=== PATIENT | male | born 1940 | race Caucasian/White ===

== ENCOUNTER 2018-08-25 16:25 | Inpatient (IN) ==
--- NOTE | 2018-08-25 16:52 | ED ---
HPI General Chief complaint: Weakness Stated complaint: Weakness Time Seen by Provider: 08/25/18 16:39 Source: patient and family Mode of arrival: wheelchair Limitations: no limitations History of Present Illness HPI narrative: 77-year-old male with history of metastatic stage IV lung cancer diagnosed at the end of last year, here with his significant other and family members for evaluation of generalized weakness, syncopal episode that occurred earlier this morning, approximately 30 pound weight loss over the last couple of weeks, decrease oral intake over the last couple of weeks. The patient was actually being visited by [facility] today for an evaluation to see if the patient would like to be started on hospice. During this evaluation it was recommended to the patient and his family that he seek treatment at the emergency department. He has not had a fever. He has had intermittent cough that occasionally is blood-tinged. He denies chest pain. He states that he had a syncopal episode this morning in his home while walking, and it took him about an hour to get back to his feet. This was an unwitnessed event. The patient had prostate cancer in 2013 that was treated. The patient has not wanted any treatment for his lung cancer. He was a long time smoker up until 3 weeks ago. Related Data Home Medications Medication Instructions Recorded Confirmed alprazolam 1 mg PO HS 08/25/18 08/25/18 aspirin 325 mg PO DAILY PRN 08/25/18 08/25/18 Allergies Allergy/AdvReac Type Severity Reaction Status Date / Time Sulfa (Sulfonamide Allergy Dizziness Verified 08/25/18 16:32 Antibiotics) aspirin AdvReac Gastrointestinal Verified 08/25/18 16:32 Upset Review of Systems ROS: all other systems reviewed are negative [facility] Medical History Medical History History of prostate cancer (Acute) Lung cancer (Acute) Social History Social History Substance History: No History of Abuse Smoking Status: Former smoker How Often Do You Have a Drink Containing Alcohol: Never Recent Travel in [facility] within the Last 8 Weeks: No Recent Out of Country Travel within the Last 8 Weeks: No Exam Narrative Exam Narrative: GENERAL: Well-developed, cachectic appearing, awake, drowsy SKIN: Focused skin assessment warm/dry. No lacerations, abrasions, or ecchymosis. HEAD: Atraumatic. Normocephalic. EYES: Pupils equal and round. No scleral icterus. No injection or drainage. ENT: No nasal bleeding or discharge. Mucous membranes pink and moist. NECK: Trachea midline. No JVD. CARDIOVASCULAR: Regular rate and rhythm. Distal pulses brisk and equal bilaterally. RESPIRATORY: No accessory muscle use. Coarse breath sounds bilaterally with diminished breath sounds on the left. Breath sounds equal bilaterally. GASTROINTESTINAL: Abdomen soft, non-tender, nondistended. MUSCULOSKELETAL: No obvious deformities. No clubbing. No cyanosis. No edema. NEUROLOGICAL: Awake and drowsy. No obvious cranial nerve deficits. Motor grossly within normal limits. Normal speech. PSYCHIATRIC: Appropriate mood and affect; insight and judgment normal. Course Initial Documented Vital Signs Temperature 97.3 F L 08/25/18 16:33 Pulse Rate 100 H 08/25/18 16:33 Respiratory Rate 18 08/25/18 16:33 Blood Pressure 109/59 L 08/25/18 16:33 Pulse Oximetry 92 L 08/25/18 16:33 Last Documented Vital Signs Temperature 97.3 F L 08/25/18 16:33 Pulse Rate 98 H 08/25/18 18:38 Respiratory Rate 20 08/25/18 18:38 Blood Pressure 132/69 08/25/18 18:38 Pulse Oximetry 98 08/25/18 18:38 Medical Decision Making MDM Narrative Medical decision making narrative: Vital signs reviewed. CBC is essentially unremarkable aside from slight neutrophilia of 80.8%. CMP is remarkable for protein corrected calcium of 13.1. This is likely secondary to dehydration/metastatic disease. UA shows 80 or greater ketones Beta hydroxybutyrate is 2.34. Chest x-ray: CONCLUSION: 1. Redemonstration of large medial left lower lung zone mass as noted on recent PET/CT exam.2. Changes consistent with obstructive pulmonary disease. The patient and the patient's were made aware of all findings. Patient was given a liter of normal saline IV and 3 DuoNeb treatments with improvement in his respiratory status. Patient was being visited by [facility] for the first time today, however is not officially under hospice care. In my opinion I believe that the patient should be admitted to be medically optimized , and while he is here hospice can reevaluate him. Patient is amenable to this plan. He remains hypoxic on room air, however does feel improved after DuoNeb treatments. He will be given 125 mg of IV Solu-Medrol and will be started on normal saline at 125 cc/h. Medical Screen Exam Complete: Yes Emergency Medical Condition: Yes Differential Diagnosis Differential Diagnosis: Metastatic disease, failure to thrive, severe dehydration, metabolic abnormality, syncope, dysrhythmia, PE, pneumonia, pulmonary edema/pulmonary effusion, COPD exacerbation Lab Data Result diagrams: 08/25/18 16:55 08/25/18 16:55 Lab Results 08/25/18 08/25/18 08/25/18 Range/Units 16:55 16:55 16:55 CBC w Diff Slide review pending WBC 9.6 (4.0-11.0) th/mm3 RBC 5.26 (4.50-5.90) mil/mm3 Hgb 14.9 (13.0-17.0) gm/dL Hct 45.8 (39.0-51.0) % MCV 87.2 (80.0-100.0) fL MCH 28.3 (27.0-34.0) pg MCHC 32.4 (32.0-36.0) % RDW 13.4 (11.6-17.2) % Plt Count 332 (150-450) th/mm3 MPV 8.4 (7.0-11.0) fL Neut % (Auto) 80.8 H (16.0-70.0) % Lymph % (Auto) 6.6 L (9.0-44.0) % [place] % (Auto) 6.5 (0.0-8.0) % Eos % (Auto) 2.3 (0.0-4.0) % Baso % (Auto) 3.8 H (0.0-2.0) % Neut # (Auto) 7.8 H (1.8-7.7) th/mm3 Lymph # (Auto) 0.6 L (1.0-4.8) th/mm3 [place] # (Auto) 0.6 (0.0-0.9) th/mm3 Eos # (Auto) 0.2 (0.0-0.4) th/mm3 Baso # (Auto) 0.4 H (0.0-0.2) th/mm3 WBC Differential . Diff Scan Auto diff confirmed Differential Comment . Platelet Estimate Normal (Normal) Platelet Morphology Normal (Normal) RBC Morphology Normal (Normal) PT 11.1 (9.8-11.6) sec INR 1.1 Ratio APTT 30.1 (23.4-31.7) sec Sodium 139 (136-145) meq/L Potassium 4.0 (3.5-5.1) meq/L Chloride 99 (98-107) meq/L Carbon Dioxide 30.8 (21.0-32.0) meq/L Anion Gap 9 (5-15) meq/L BUN 21 H (7-18) mg/dL Creatinine 0.96 (0.60-1.30) mg/dL Estimated GFR 76 L (>89) mL/min Random Glucose 92 (74-106) mg/dL Lactic Acid (0.4-2.0) mmol/L Calcium 13.1 H* (8.5-10.1) mg/dL Calcium Adj for Albumin 13.5 H* (8.5-10.1) mg/dL Magnesium 1.8 (1.5-2.5) mg/dL Total Bilirubin 0.7 (0.2-1.0) mg/dL AST 16 (15-37) U/L ALT 13 (12-78) U/L Alkaline Phosphatase 107 (45-117) U/L Total Creatine Kinase 27 L (39-308) U/L Troponin I Less than 0.02 L (0.02-0.05) ng/mL Total Protein 8.3 H (6.4-8.2) g/dL Albumin 3.5 (3.4-5.0) g/dL Beta-Hydroxybutyric Acd 2.34 H (0.00-0.39) mmol/L Urine Color (Yellw/Straw) Urine Clarity (Clear) Urine pH (5.0-8.5) Ur Specific Bells (1.002-1.035) Urine Protein (Neg-Trace) mg/dL Urine Glucose (UA) (Negative) mg/dL Urine Ketones (Negative) mg/dL Urine Occult Blood (Negative) Urine Nitrate (Negative) Urine Bilirubin (Negative) Urine Ictotest (Negative) Urine Urobilinogen (Less than 2) mg/dL Ur Leukocyte Esterase (Negative) Urine RBC (0-3) /hpf Urine WBC (0-5) /hpf Ur Squamous Epith Cells (0-5) /hpf Urine Mucus (Occasional) /lpf Micro UA Comment Ur Microscopic Review Urine Culture Comments 08/25/18 08/25/18 Range/Units 16:55 18:20 CBC w Diff WBC (4.0-11.0) th/mm3 RBC (4.50-5.90) mil/mm3 Hgb (13.0-17.0) gm/dL Hct (39.0-51.0) % MCV (80.0-100.0) fL MCH (27.0-34.0) pg MCHC (32.0-36.0) % RDW (11.6-17.2) % Plt Count (150-450) th/mm3 MPV (7.0-11.0) fL Neut % (Auto) (16.0-70.0) % Lymph % (Auto) (9.0-44.0) % [place] % (Auto) (0.0-8.0) % Eos % (Auto) (0.0-4.0) % Baso % (Auto) (0.0-2.0) % Neut # (Auto) (1.8-7.7) th/mm3 Lymph # (Auto) (1.0-4.8) th/mm3 [place] # (Auto) (0.0-0.9) th/mm3 Eos # (Auto) (0.0-0.4) th/mm3 Baso # (Auto) (0.0-0.2) th/mm3 WBC Differential Diff Scan Differential Comment Platelet Estimate (Normal) Platelet Morphology (Normal) RBC Morphology (Normal) PT (9.8-11.6) sec INR Ratio APTT (23.4-31.7) sec Sodium (136-145) meq/L Potassium (3.5-5.1) meq/L Chloride (98-107) meq/L Carbon Dioxide (21.0-32.0) meq/L Anion Gap (5-15) meq/L BUN (7-18) mg/dL Creatinine (0.60-1.30) mg/dL Estimated GFR (>89) mL/min Random Glucose (74-106) mg/dL Lactic Acid 1.5 (0.4-2.0) mmol/L Calcium (8.5-10.1) mg/dL Calcium Adj for Albumin (8.5-10.1) mg/dL Magnesium (1.5-2.5) mg/dL Total Bilirubin (0.2-1.0) mg/dL AST (15-37) U/L ALT (12-78) U/L Alkaline Phosphatase (45-117) U/L Total Creatine Kinase (39-308) U/L Troponin I (0.02-0.05) ng/mL Total Protein (6.4-8.2) g/dL Albumin (3.4-5.0) g/dL Beta-Hydroxybutyric Acd (0.00-0.39) mmol/L Urine Color Yellow (Yellw/Straw) Urine Clarity Clear (Clear) Urine pH 5.5 (5.0-8.5) Ur Specific Bells Greater/equal 1.030 (1.002-1.035) Urine Protein Trace (Neg-Trace) mg/dL Urine Glucose (UA) Negative (Negative) mg/dL Urine Ketones 80 or greater H (Negative) mg/dL Urine Occult Blood Negative (Negative) Urine Nitrate Negative (Negative) Urine Bilirubin Negative (Negative) Urine Ictotest Negative (Negative) Urine Urobilinogen 1.0 (Less than 2) mg/dL Ur Leukocyte Esterase Negative (Negative) Urine RBC 0-3 (0-3) /hpf Urine WBC 0-5 (0-5) /hpf Ur Squamous Epith Cells 0-5 (0-5) /hpf Urine Mucus Many H (Occasional) /lpf Micro UA Comment Culture not ind Ur Microscopic Review Microscopic reviewed Urine Culture Comments Culture not ind Imaging Data Radiologist's impression: Chest X-Ray 08/25/18 16:46 CONCLUSION: 1. Redemonstration of large medial left lower lung zone mass as noted on recent PET/CT exam. 2. Changes consistent with obstructive pulmonary disease. ECG Data Attestation: I personally reviewed and interpreted this ECG as follows: (Sinus, rate 82, normal axis, incomplete RBBB, no acute ischemic abnormality.) Discharge Plan Discharge Disposition Patient Disposition: ED Admit(ED Internal Use Only) Discharge Condition Condition: Fair Discharge Order Discharge Orders: ED Use Only Admit Order (Routine); Ordered 08/25/18 Ordered By: Ghanshyam Alba Discharge Details Diagnosis: Hypercalcemia, COPD exacerbation, Mass of left lung, Generalized weakness, Starvation ketoacidosis Physicians Team ED Provider: Ghanshyam Alba Attending Provider: Martin Krueger Discharge Interventions Interventions: Vital Signs Last Done: 08/25/18 18:38 Status ED Status: Admitted Patient
[2018-08-25 17:21] LABS: Baso # (Auto) 0.4 th/mm3 (0.0-0.2); Baso % (Auto) 3.8 % (0.0-2.0); Eos # (Auto) 0.2 th/mm3 (0.0-0.4); Eos % (Auto) 2.3 % (0.0-4.0); Hematocrit 45.8 % (39.0-51.0); Hemoglobin 14.9 gm/dL (13.0-17.0); Lymph # (Auto) 0.6 th/mm3 (1.0-4.8); Lymph % (Auto) 6.6 % (9.0-44.0); Mean Corpuscular HGB Conc 32.4 % (32.0-36.0); Mean Corpuscular Hemoglobin 28.3 pg (27.0-34.0); Mean Corpuscular Volume 87.2 fL (80.0-100.0); Mean Platelet Volume 8.4 fL (7.0-11.0); Mono # (Auto) 0.6 th/mm3 (0.0-0.9); Mono % (Auto) 6.5 % (0.0-8.0); Neut # (Auto) 7.8 th/mm3 (1.8-7.7); Neut % (Auto) 80.8 % (16.0-70.0); Platelet Count 332 th/mm3 (150-450); Red Blood Count 5.26 mil/mm3 (4.50-5.90); Red Cell Distribution Width 13.4 % (11.6-17.2); White Blood Count 9.6 th/mm3 (4.0-11.0)
[2018-08-25 17:27] LABS: Chloride 99 meq/L (98-107); Sodium 139 meq/L (136-145)
[2018-08-25 17:32] LABS: Activated Partial Thrombo Time 30.1 sec (23.4-31.7); INR 1.1 Ratio; Prothrombin Time 11.1 sec (9.8-11.6)
[2018-08-25] MEDS: Sod Chloride 0.9% Inj 1,000 ML IV.SIG SCH (17:34)
[2018-08-25 17:42] LABS: Alanine Aminotransferase 13 U/L (12-78); Albumin 3.5 g/dL (3.4-5.0); Alkaline Phosphatase 107 U/L (45-117); Anion Gap 9 meq/L (5-15); Aspartate Aminotransferase 16 U/L (15-37); Blood Urea Nitrogen 21 mg/dL (7-18); Calcium 13.1 mg/dL (8.5-10.1); Carbon Dioxide 30.8 meq/L (21.0-32.0); Glomerular Filtration Rate 76 mL/min (>89); Glucose,Random 92 mg/dL (74-106); Magnesium 1.8 mg/dL (1.5-2.5); Total Protein 8.3 g/dL (6.4-8.2)
[2018-08-25 17:44] LABS: Creatine Kinase 27 U/L (39-308)
[2018-08-25 17:45] LABS: Platelet Estimate Normal (Normal); Platelet Morphology Normal (Normal); RBC Morphology Normal (Normal)
[2018-08-25 17:52] LABS: Beta Hydroxybutyric Acid 2.34 mmol/L (0.00-0.39)
--- NOTE | 2018-08-25 17:59 | XR ---
EXAM DATE: 08/25/2018 5:54 PM EST AGE/SEX: 77 years / Male INDICATIONS: Weakness all over body for over a week with chest pain. CLINICAL DATA: This is the patient's initial encounter. Patient reports that signs and symptoms have been present for 1 week and indicates a pain score of 3/10. MEDICAL/SURGICAL HISTORY: None. None. COMPARISON: [facility]LI, PET/CT TUMOR, 08/04/2018. . FINDINGS: Mild diffuse interstitial prominence. Small calcified granuloma in the lateral right midlung. Redemon stration of a large mass in the medial left lower lung zone similar to recent PET/CT exam. 1 cm right upper lobe lung nodule is not well demonstrated on this exam. The cardiomediastinal contours are oth erwise unremarkable. Osseous structures are intact. CONCLUSION: 1. Redemonstration of large medial left lower lung zone mass as noted on recent PET/CT exam. 2. Changes consistent with obstructive pulmonary disease. Electronically signed by: Ronnie Karimi MD Board Certified Radiologist 08/25/2018 5:57 PM EST
[2018-08-25 18:28] LABS: Clarity,Urine Clear (Clear); Color,Urine Yellow (Yellw/Straw); Glucose,Urine (UA) Negative (Negative); Leukocyte Esterase,Urine Negative (Negative); Nitrite,Urine Negative (Negative); PH,Urine 5.5 (5.0-8.5); Specific Gravity,Urine Greater/Equal 1.030 (1.002-1.035)
[2018-08-25] MEDS: Sod Chloride 0.9% Inj 1,000 ML IV.CONT SCH ×2 (18:31→18:59)
[2018-08-25] MEDS ORDERED: MethylPREDNISolone Sod Succinate Inj 125 MG/2 ML Vial IV.PUSH ONE (18:31)
[2018-08-25] MEDS ORDERED: Acetaminophen 325 MG Tablet PO PRN (18:36)
[2018-08-25 18:39] LABS: Bilirubin,Urine Negative (Negative); Ictotest,Urine Negative (Negative)
[2018-08-25 18:40] LABS: RBC,Urine 0-3 /hpf (0-3); WBC,Urine 0-5 /hpf (0-5)
[2018-08-25 18:41] LABS: Mucus,Urine Many /lpf (Occasional); Squamous Epithelial Cell,Urine 0-5 /hpf (0-5)
[2018-08-25] MEDS ORDERED: Aspirin 325 MG Tablet PO PRN (18:41)
--- NOTE | 2018-08-25 22:35 | ECG ---
Date Performed: 08/25/2018 Time Performed: 17:07:02 PTAGE: 77 years EKG: Sinus rhythm INCOMPLETE RIGHT BUNDLE BRANCH BLOCK BORDERLINE ECG NO PREVIOUS TRACING DOCTOR: Radhika Lynn Interpretating Date/Time 08/25/2018 22:34:03
[2018-08-26] MEDS: Sod Chloride 0.9% Inj 1,000 ML IV.CONT SCH ×4 (07:09→20:47)
[2018-08-26 07:43] LABS: Potassium 3.9 meq/L (3.5-5.1)
[2018-08-26 08:00] LABS: Albumin 2.9 g/dL (3.4-5.0); Calcium 11.6 mg/dL (8.5-10.1); Carbon Dioxide 27.6 meq/L (21.0-32.0); Total Protein 6.9 g/dL (6.4-8.2)
[2018-08-26] MEDS: Sod Chloride 0.9% Inj 1,000 ML IV.SIG SCH (09:12)
--- NOTE | 2018-08-26 14:05 | P.HPIM ---
History of Present Illness Primary Care Physician: rob Davidson Chief Complaint: Generalized weakness, syncopal episode History of Present Illness: This is a pleasant 77-year-old male patient with a known medical history of metastatic stage IV lung cancer who was diagnosed at the end of last year who presented to the ED status post syncopal episode as well as generalized weakness. Patient on assessment is pleasantly confused and unable to provide much history to contribute to the exam. After review of records patient has supposedly lost 30 pounds over the last couple weeks with decreased oral intake. Patient was actually supposed to be evaluated by [facility] today and he requests to be started on hospice. During the evaluation it was recommended to the patient and his family that they seek treatment the emergency department. Patient does admit to occasional blood-tinged sputum with cough. He states that he did have a syncopal episode at home this morning while he was walking although this was an unwitnessed witnessed event. No family at bedside to assist with obtaining medical history. Inpatient Certification Inpatient Certification: I certify that the inpatient services were ordered in accordance with Medicare regulations governing the order. This includes certification that hospital inpatient services are reasonable and necessary and in the case of services not specified as inpatient-only under 42 CFR 419.22(n), that they are appropriately provided as inpatient services in accordance to with the 2-midnight benchmark under 43 CFR 412.3(e) Estimated Total Length of Stay (Days): 2 Plans for Post Hospital Care: Not yet determined Review of Systems Review of Systems: all other systems reviewed are negative [facility] Medical History Medical History History of prostate cancer (Acute) Lung cancer (Acute) Surgical History Surgical History History of back surgery (Acute) History of prostate surgery (Acute) Hx of cholecystectomy (Acute) Hx of tonsillectomy (Acute) Social History Social History Substance History: No History of Abuse Second Hand Smoke Exposure: Yes Smoking Status: Current every day smoker Tobacco Type: Cigarettes How Often Do You Have a Drink Containing Alcohol: 2 to 4 times a month Recent Travel in [facility] within the Last 8 Weeks: No Recent Out of Country Travel within the Last 8 Weeks: No Immunization History Tetanus Immunization: Unsure Hx Influenza Vaccine This Season: No Medications and Allergies Allergies Allergy/AdvReac Type Severity Reaction Status Date / Time Sulfa (Sulfonamide Allergy Dizziness Verified 08/25/18 16:32 Antibiotics) aspirin AdvReac Gastrointestinal Verified 08/25/18 16:32 Upset Home Medications Medication Instructions Recorded Confirmed Type alprazolam 1 mg PO HS 08/25/18 08/25/18 History aspirin 325 mg PO DAILY PRN 08/25/18 08/25/18 History Active Medications: Active Medications Acetaminophen (Tylenol) 650 mg PO Q4H PRN PRN Reason: Temp > 100.4 Al Hydroxide/Mg Hydroxide (Milk Of Magnpriscilla Liq) 30 ml PO Q12H PRN PRN Reason: Mild Constipation Alprazolam (Xanax) 1 mg PO [facility] Last Admin: 08/25/18 22:22 Dose: 1 mg Aspirin (Aspirin) 325 mg PO DAILY PRN PRN Reason: Headache Sodium Chloride (Ns Inj) 1,000 mls @ 0 mls/hr IV.SIG .Q0M [facility] Last Admin: 08/26/18 09:12 Dose: 80 mls/hr Sodium Chloride (Ns Inj) 1,000 mls @ 125 mls/hr IV.CONT .Q8H [facility] Last Admin: 08/26/18 13:38 Dose: Not Given Sodium Chloride (Ns Inj) 1,000 mls @ 80 mls/hr IV.CONT .[id number] [facility] Last Admin: 08/26/18 09:13 Dose: 80 mls/hr Ondansetron HCl (Zofran Inj) 4 mg IV.PUSH Q6H PRN PRN Reason: NAUSEA OR VOMITING Sodium Chloride (Ns Flush) 2 ml IV.FLUSH PRN PRN PRN Reason: FLUSH AFTER USING IV ACCESS Sodium Chloride (Ns Flush) 2 ml IV.FLUSH BID [facility] Last Admin: 08/26/18 09:11 Dose: Not Given Physical Exam Vital signs: Vital Signs 08/25/18 16:33 08/25/18 16:46 08/25/18 17:12 Temperature 97.3 F L Pulse Rate 100 H 74 87 Respiratory Rate 18 18 Blood Pressure 109/59 L Pulse Oximetry 92 L 95 08/25/18 17:35 08/25/18 18:38 08/25/18 19:57 Temperature Pulse Rate 90 98 H 96 H Respiratory Rate 20 20 20 Blood Pressure 140/78 132/69 104/84 Pulse Oximetry 92 L 98 94 L 08/25/18 20:00 08/26/18 00:00 08/26/18 08:00 Temperature 97.7 F 96.9 F L 97.4 F L Pulse Rate 88 82 75 Respiratory Rate 20 20 20 Blood Pressure 133/65 140/69 174/79 H Pulse Oximetry 93 L 93 L 94 L 08/26/18 12:00 Temperature 96 F L Pulse Rate 82 Respiratory Rate 18 Blood Pressure 156/76 H Pulse Oximetry 93 L Intake & Output 08/25/18 08/26/18 08/26/18 18:59 06:59 18:59 Intake Total 1037 / 1037 1134 / 1134 Output Total 150 / 150 Balance 1037 / 1037 984 / 984 Weight 68.9 kg 69.6 kg Intake: IV 1037 / 1037 1134 / 1134 NS Inj 1,000 ML @ 80 mls/hr IV. 37 / 37 1134 / 1134 CONT .[id number] [facility] Rx#: [id number] NS Inj 1,000 ML @ Wide Open IV. 1000 / 1000 SIG .Q0M [facility] Rx#:[id number] Output: Urine 150 / 150 Other: Weight On Admission 69.6 kg Narrative: GENERAL: Well-developed, well-nourished patient in [facility]. SKIN: Warm and dry. No rash. HEAD: Normocephalic. Atraumatic. EYES: Pupils equal and round. No scleral icterus. No injection or drainage. ENT: No nasal bleeding or discharge. Mucous membranes pink and moist. NECK: Supple. Trachea midline. CARDIOVASCULAR: Regular rate and rhythm. S1, S2 noted. RESPIRATORY: No accessory muscle use. Clear to auscultation. Breath sounds equal bilaterally. GASTROINTESTINAL: Abdomen soft, non-tender, nondistended. Normoactive bowel sounds x4. MUSCULOSKELETAL: No obvious deformities. Extremities without clubbing, cyanosis , or edema. NEUROLOGICAL: Awake and alert. No obvious cranial nerve deficits. Motor grossly within normal limits. 5/5 muscle strength in bilateral upper and lower extremities. Normal speech. PSYCHIATRIC: Appropriate mood and affect; insight and judgment normal. Results Labs CBC & Chem 7: 08/25/18 16:55 08/26/18 06:59 Imaging Impressions Chest X-Ray 08/25/18 16:46 CONCLUSION: 1. Redemonstration of large medial left lower lung zone mass as noted on recent PET/CT exam. 2. Changes consistent with obstructive pulmonary disease. Caprini VTE Risk Assessment Caprini VTE Risk Assessment: Moderate/High Risk (score >= 2) Caprini Risk Assessment Model: Point Value = 1 Point Value = 2 Point Value = 3 Point Value = 5 Age 41-60 Minor surgery BMI > 25 kg/m2 Swollen legs Varicose veins or History of unexplained or recurrent spontaneous Oral contraceptives or hormone replacement Sepsis (< 1 month) Serious lung disease, including pneumonia (< 1 month) Abnormal pulmonary function Acute myocardial infarction Congestive heart failure (< 1 month) History of inflammatory bowel disease Medical patient at bed rest Age 61-74 Arthroscopic surgery Major open surgery (> 45 min) Laparoscopic surgery (> 45 min) Malignancy Confined to bed (> 72 hours) Immobilizing plaster cast Central venous access Age >= 75 History of VTE Family history of VTE Factor V Leiden Prothrombin [id number] Lupus anticoagulant Anticardiolipin antibodies Elevated serum homocysteine Heparin-induced thrombocytopenia Other congenital or acquired thrombophilia Stroke (< 1 month) Elective arthroplasty Hip, pelvis, or leg fracture Acute spinal cord injury (< 1 month) Prophylaxis Regimen: Total Risk Factor Score Risk Level Prophylaxis Regimen 0-1 Low Early ambulation 2 Moderate Order ONE of the following: *Sequential Compression Device (SCD) *Heparin 5000 units SQ BID 3-4 Higher Order ONE of the following medications: *Heparin 5000 units SQ TID *Enoxaparin/Lovenox 40 mg SQ daily (WT < 150 kg, CrCl > 30 mL/min) *Enoxaparin/Lovenox 30 mg SQ daily (WT < 150 kg, CrCl > 10-29 mL/min) *Enoxaparin/Lovenox 30 mg SQ BID (WT < 150 kg, CrCl > 30 mL/min) AND/OR *Sequential Compression Device (SCD) 5 or more Highest Order ONE of the following medications: *Heparin 5000 units SQ TID (Preferred with Epidurals) *Enoxaparin/Lovenox 40 mg SQ daily (WT < 150 kg, CrCl > 30 mL/min) *Enoxaparin/Lovenox 30 mg SQ daily (WT < 150 kg, CrCl > 10-29 mL/min) *Enoxaparin/Lovenox 30 mg SQ BID (WT < 150 kg, CrCl > 30 mL/min) AND *Sequential Compression Device (SCD) Assessment and Plan Plan This is a 77-year-old male patient with a known medical history of metastatic stage IV lung cancer who presented to the ED status post syncopal episode as well as generalized weakness. Syncopal episode at home Suspect secondary to dehydration versus hypoxia, possible COPD exacerbation -Chest x-ray showing demonstration of a large medial left lower lung mass as noted on recent PET scan. -Was given duo nebs. Will continue. Also given IV Solu-Medrol. Continue scheduled. -Supplemental O2 as needed to keep oxygen sats greater than 90%. Duonebs as needed. -Patient was given IV fluids. Presented with hypercalcemia. Has improved overnight. Will continue on IV hydration. -Ensure hydration encourage p.o. intake. -Continue on cardiac equipment monitor phototypesetting for any arrhythmias. -CBC reviewed, essentially unremarkable. Metastatic stage IV lung cancer Failure to thrive -Patient diagnosed in June of last year, refusing any treatment for the lung cancer. Requesting hospice. -Hospice has been consulted, awaiting input and recommendations. -Repeat chest x-ray as above. -For now supportive care. Hypercalcemia -Calcium 13.1 on presentation has improved to 11 today. -Likely secondary to dehydration and metastatic disease. -Will continue gentle hydration. Monitor labs. DVT prophylaxis: SCDs. Discussed with patient, Dr. Krueger. H&P: Quality VTE Deep Vein Thrombosis/Pulmonary Embolism Present on Admission: No
[2018-08-26] MEDS: MethylPREDNISolone Sod Succinate Inj 40 MG/ML Vial IV.PUSH SCH ×2 (16:39→20:47)
[2018-08-27] MEDS: Sod Chloride 0.9% Inj 1,000 ML IV.CONT SCH ×2 (03:02→10:55)
[2018-08-27] MEDS: MethylPREDNISolone Sod Succinate Inj 40 MG/ML Vial IV.PUSH SCH ×2 (03:43→08:54)
[2018-08-27 07:41] LABS: Baso % (Auto) 0.1 % (0.0-2.0); Hematocrit 38.5 % (39.0-51.0); Hemoglobin 12.7 gm/dL (13.0-17.0); Lymph # (Auto) 0.3 th/mm3 (1.0-4.8); Mean Corpuscular HGB Conc 33.1 % (32.0-36.0); Mean Corpuscular Volume 87.5 fL (80.0-100.0); Mean Platelet Volume 8.7 fL (7.0-11.0); Mono # (Auto) 0.2 th/mm3 (0.0-0.9); Mono % (Auto) 2.5 % (0.0-8.0); Neut # (Auto) 9.2 th/mm3 (1.8-7.7); Neut % (Auto) 94.4 % (16.0-70.0); Platelet Count 285 th/mm3 (150-450); Red Cell Distribution Width 13.3 % (11.6-17.2); White Blood Count 9.7 th/mm3 (4.0-11.0)
[2018-08-27 08:11] LABS: Chloride 108 meq/L (98-107); Potassium 3.5 meq/L (3.5-5.1); Sodium 144 meq/L (136-145)
[2018-08-27 08:21] LABS: Calcium 11.5 mg/dL (8.5-10.1)
[2018-08-27 08:22] LABS: Albumin 2.8 g/dL (3.4-5.0); Anion Gap 9 meq/L (5-15); Blood Urea Nitrogen 27 mg/dL (7-18); Carbon Dioxide 26.9 meq/L (21.0-32.0); Glucose,Random 132 mg/dL (74-106)
[2018-08-27 08:25] LABS: Alanine Aminotransferase 14 U/L (12-78); Aspartate Aminotransferase 17 U/L (15-37); Glomerular Filtration Rate Greater Than 89 mL/min (>89)
[2018-08-27 08:26] LABS: Total Protein 6.4 g/dL (6.4-8.2)
[2018-08-27 08:28] LABS: Alkaline Phosphatase 76 U/L (45-117)
--- NOTE | 2018-08-27 08:47 | P.PNIM ---
Subjective Interval history: Follow-up hypercalcemia and COPD exacerbation. Patient seen and examined, at bedside. Lying in bed in bilateral wrist restraints supposedly patient was trying to leave and confused last evening. Awaiting hospice consult today. Patient is pleasant lying in bed. Will attempt to remove restraints. Vital signs showing an elevated BP, clonidine as needed. Patient is eating. Afebrile. Physical Exam Vital signs: Vital Signs 08/26/18 12:00 08/26/18 15:15 08/26/18 16:00 Temperature 96 F L 98.6 F Pulse Rate 82 84 Respiratory Rate 18 18 Blood Pressure 156/76 H 148/68 H Pulse Oximetry 93 L 94 L 08/26/18 19:30 08/26/18 20:00 08/27/18 00:00 Temperature 97.1 F L 96.2 F L Pulse Rate 70 77 Respiratory Rate 18 18 Blood Pressure 164/84 H 194/89 H Pulse Oximetry 96 96 96 08/27/18 07:40 Temperature Pulse Rate Respiratory Rate Blood Pressure Pulse Oximetry 92 L Intake & Output 08/26/18 08/27/18 08/27/18 18:59 06:59 18:59 Intake Total 2059 / 2059 Output Total 650 / 650 400 / 400 Balance -650 / -650 1660 / 1660 Weight 69.6 kg Intake: IV 1999 / 1999 NS Inj 1,000 ML @ 80 mls/hr IV. 1000 / 1000 CONT .[id number] ADAM Rx#: [id number] NS Inj 1,000 ML @ Wide Open IV. 1000 / 1000 SIG .Q0M ADAM Rx#:[id number] Oral 60 / 60 Output: Urine 650 / 650 400 / 400 Other: # Voids 1 Narrative: GENERAL: Well-developed, well-nourished patient in NAD. With bilateral wrist restraints. SKIN: Warm and dry. No rash. HEAD: Normocephalic. Atraumatic. EYES: Pupils equal and round. No scleral icterus. No injection or drainage. ENT: No nasal bleeding or discharge. Mucous membranes pink and moist. NECK: Supple. Trachea midline. CARDIOVASCULAR: Regular rate and rhythm. S1, S2 noted. RESPIRATORY: No accessory muscle use. Clear to auscultation. Breath sounds equal bilaterally. GASTROINTESTINAL: Abdomen soft, non-tender, nondistended. Normoactive bowel sounds x4. MUSCULOSKELETAL: No obvious deformities. Extremities without clubbing, cyanosis , or edema. NEUROLOGICAL: Awake and alert. No obvious cranial nerve deficits. Motor grossly within normal limits. 5/5 muscle strength in bilateral upper and lower extremities. Normal speech. Pleasantly confused. Results Labs CBC & Chem 7: 08/27/18 06:22 08/27/18 06:22 Labs: Microbiology 08/25/18 17:00 Blood - Peripheral Aerobic Blood Culture - Preliminary No growth in 1 day 08/25/18 17:00 Blood - Peripheral Anaerobic Blood Culture - Preliminary No growth in 1 day 08/25/18 16:55 Blood - Peripheral Aerobic Blood Culture - Preliminary No growth in 1 day 08/25/18 16:55 Blood - Peripheral Anaerobic Blood Culture - Preliminary No growth in 1 day Assessment and Plan Plan This is a 77-year-old male patient with a known medical history of metastatic stage IV lung cancer who presented to the ED status post syncopal episode as well as generalized weakness. Syncopal episode at home Suspect secondary to dehydration versus hypoxia, possible COPD exacerbation -Chest x-ray showing demonstration of a large medial left lower lung mass as noted on recent PET scan. -Was given duo nebs. Will continue. Also given IV Solu-Medrol. Continue scheduled. -Supplemental O2 as needed to keep oxygen sats greater than 90%. Duonebs as needed. -Patient was given IV fluids. Presented with hypercalcemia. Has improved overnight with IV hydration. Will discontinue, monitor for overload. Pressure is also elevated. -Ensure hydration encourage p.o. intake. -Continue on cardiac nurse monitoring for any arrhythmias. -CBC reviewed, essentially unremarkable. Metastatic stage IV lung cancer Failure to thrive -Patient diagnosed in June of last year, refusing any treatment for the lung cancer. Requesting hospice. -Hospice has been consulted, here to evaluate patient. and patient resting to go home with hospice. -Repeat chest x-ray as above. -For now supportive care. Hypercalcemia -Calcium 13.1 on presentation has improved to 11 today. -Likely secondary to dehydration and metastatic disease. -Monitor labs. DVT prophylaxis: SCDs. Discussed with patient, Dr. Krueger. Progress Note: Quality VTE Deep Vein Thrombosis/Pulmonary Embolism Present on Admission: No
[2018-08-27 12:42] VITALS: BP 184/81; PULSE 76; RESP 15; TEMP 97.8; O2SAT 100
[2018-08-27] MEDS ORDERED: MethylPREDNISolone Sod Succinate Inj 40 MG/ML Vial IV.PUSH SCH (14:00)
== END 2018-08-27 16:21 | disposition hospice, inpatient (51) | DRG 181 ==
LOC: PHED 16:25 → PHEDA 18:31 → PH3 20:13
PROVIDERS: ADMIT Hospitalist; ATTEND Hospitalist
CPT/HCPCS: 71010; 71045; 80053; 81001; 82010; 82550; 83605; 83735; 84484; 85025; 85610; 85730; 87040; 87275; 87276; 87804; 93005; 94664; 97162; 99285; J2060; J2920; J2930; J7030